=== PATIENT | female | born 1985 | race Asian ===

== ENCOUNTER 2022-12-24 09:05 | Outpatient (CLI) | payer OTHER ==
[2022-12-24 10:07] LABS: PLATELET COUNT 327 K/uL (152-353)
[2022-12-24 10:21] LABS: POTASSIUM 4.1 mmol/L (3.6-5.2)
== END 2022-12-24 19:11 | disposition home or self-care (01) ==
LOC: LABW 09:05
PROVIDERS: ATTEND Nurse Practitioner Acute Care
DX: I10 Essential (primary) hypertension (principal); R73.03 Prediabetes
CPT/HCPCS: 36415; 80053; 80061; 83036; 84443; 85027